=== PATIENT | female | born 1930 | race Caucasian/White ===

== ENCOUNTER 2017-11-17 16:39 | Inpatient (IN) ==
[2017-11-17] MEDS ORDERED: SODIUM CHLORIDE 0.9% 500 ML IV STA (16:50)
[2017-11-17] MEDS ORDERED: ONDANSETRON 4 MG/2 ML VIAL IV STA ×2 (16:51→18:42)
[2017-11-17] MEDS ORDERED: CEFEPIME 1,000 MG in SODIUM CHLORIDE 0.9% 100 ML IV STA (16:52)
[2017-11-17] MEDS ORDERED: ALBUTEROL/IPRATROPIUM 3 ML NEB RESP TX STA ×2 (16:53→18:41)
[2017-11-17] MEDS ORDERED: VANCOMYCIN INJ 1,000 MG in SODIUM CHLORIDE 0.9% 250 ML IV STA (16:59)
[2017-11-17 17:12] LABS: Basophils # 0.1 10*3/uL (0.0-0.2); Basophils % 0.7 % (0.0-0.8); Eosinophils # 0.2 10*3/uL (0.0-0.87); Eosinophils % 1.6 % (0.00-10.9); Hematocrit 43.3 VOL% (35.7-47.0); Hemoglobin 13.4 GM/DL (12.0-16.0); Immature Granulocytes % 0.6 %; Immature Granulocytes Absolute 0.07 #; Lymphocytes % 8.5 % (21.3-54.2); Mean Corpuscular HGB Conc 30.9 GM/DL (32-36); Mean Corpuscular Hemoglobin 26 PG (27-34); Mean Corpuscular Volume 83.8 FL (87-102); Mean Platelet Volume 11.1 FL (9.6-12.0); Monocytes # 0.9 10*3/uL (0.11-0.8); Monocytes % 7.5 % (1.7-12.7); Neutrophils # 9.8 10*3/uL (1.4-7.4); Neutrophils % 81.1 % (38.7-73.9); Platelet Count 461 T/CUMM (130-400); Red Blood Count 5.17 MC/CUMM (3.8-5.5); Red Cell Distribution Width 15.5 % (9.3-17.3); White Blood Count 12.1 T/CUMM (4-12)
[2017-11-17 17:23] LABS: INR 1.1; PT Patient Result 11.6 SECS; Partial Thromboplastin Time 33.4 SECS (0-40)
[2017-11-17 17:29] LABS: Lactic Acid 2.6 MMOL/L (0.4-2.0)
[2017-11-17] MEDS ORDERED: DOCUSATE SODIUM 100 MG CAPSULE PO PRN (18:49)
[2017-11-17] MEDS ORDERED: ALBUTEROL/IPRATROPIUM 3 ML NEB RESP TX PRN (19:02)
[2017-11-17] MEDS ORDERED: MECLIZINE 25 MG TABLET PO PRN (19:08)
[2017-11-17] MEDS ORDERED: ONDANSETRON ODT 4 MG TABLET PO PRN (19:08)
[2017-11-17] MEDS ORDERED: traMADol 50 MG TABLET PO PRN (19:08)
[2017-11-17 19:19] LABS: Alanine Aminotransferase 14 U/L (13-56); Albumin 2.8 G/DL (3.4-5.0); Alkaline Phosphatase 106 U/L (45-117); Aspartate Amino Transferase 21 U/L (0-37); Blood Urea Nitrogen 13 MG/DL (7-18); Calcium 9.5 MG/DL (8.5-10.1); Glucose 104 MG/DL (74-106); Osmolality,Calculated 274.7 MOS/KG (273-304); Sodium 138 MMOL/L (136-145); Total Protein 7.6 G/DL (6.4-8.3)
[2017-11-17 19:27] LABS: Apearance,Urine CLOUDY (Clear); Bilirubin,Urine Negative (Negative); Blood, Urine Moderate mg/dL (Negative); Glucose,Urine (UA) Negative (Negative); Ketones,Urine 20 mg/dL (Negative); Mucus,Urine Many /LPF (Occasional); Nitrite,Urine Negative (Negative); Protein,Urine Negative; RBC,Urine 17 /HPF (0-4); Urine Color Amber (Yellow); Urine Specific Gravity 1.024 (1.001-1.035); Urine Urobilinogen < 2.0 EU/DL (0.2-1.0)
[2017-11-17] MEDS: SODIUM CHLORIDE 0.9% 1,000 ML IV SCH (20:00)
[2017-11-17] MEDS ORDERED: DONEPEZIL 10 MG TABLET PO SCH (21:00)
[2017-11-17 21:34] LABS: Lactic Acid 2.1 MMOL/L (0.4-2.0)
[2017-11-17] MEDS: methylPREDNISolone SOD SUC 40 MG/1 ML VIAL IV SCH (21:40)
[2017-11-17] MEDS: FERROUS SULFATE 325 MG TABLET PO SCH (21:40)
[2017-11-17] MEDS: MELATONIN 3 MG TABLET PO SCH (21:40)
[2017-11-17] MEDS: BENZONATATE 100 MG CAPSULE PO SCH (21:40)
[2017-11-17] MEDS: MEROPENEM 1,000 MG in SYRINGE 1 EACH IV SCH (21:41)
[2017-11-17] MEDS: AZITHROMYCIN INJ 500 MG in SODIUM CHLORIDE 0.9% 250 ML IV SCH (23:47)
[2017-11-17] MEDS: ALBUTEROL 2.5 MG/3 ML NEB RESP TX SCH (23:51)
[2017-11-18 01:44] LABS: Calcium 8.7 MG/DL (8.5-10.1); Osmolality,Calculated 275.7 MOS/KG (273-304); Potassium 4.3 MMOL/L (3.5-5.1)
[2017-11-18] MEDS: ALBUTEROL 2.5 MG/3 ML NEB RESP TX SCH ×6 (03:47→23:15)
[2017-11-18 07:08] LABS: Basophils % 0.3 % (0.0-0.8); Eosinophils % 0.1 % (0.00-10.9); Hematocrit 37.3 VOL% (35.7-47.0); Immature Granulocytes % 0.5 %; Immature Granulocytes Absolute 0.05 #; Lymphocytes # 0.4 10*3/uL (1.4-4.0); Lymphocytes % 4.4 % (21.3-54.2); Mean Corpuscular HGB Conc 32.2 GM/DL (32-36); Mean Corpuscular Hemoglobin 27 PG (27-34); Mean Corpuscular Volume 83.3 FL (87-102); Mean Platelet Volume 11.4 FL (9.6-12.0); Monocytes # 0.2 10*3/uL (0.11-0.8); Monocytes % 1.6 % (1.7-12.7); Neutrophils # 8.7 10*3/uL (1.4-7.4); Neutrophils % 93.1 % (38.7-73.9); Platelet Count 383 T/CUMM (130-400); Red Blood Count 4.48 MC/CUMM (3.8-5.5); Red Cell Distribution Width 15.6 % (9.3-17.3); White Blood Count 9.4 T/CUMM (4-12)
[2017-11-18 07:40] LABS: Band Neutrophils 1 % (0-10); Hypochromasia Slight; Lymphocytes 2 % (20-55); Ovalocytes Slight; Platelet Estimate Adequate; Segmented Neutrophils 96 % (50-85); Total Cells Counted 100
[2017-11-18] MEDS: methylPREDNISolone SOD SUC 40 MG/1 ML VIAL IV SCH ×2 (08:45→21:40)
[2017-11-18] MEDS: MEROPENEM 1,000 MG in SYRINGE 1 EACH IV SCH ×2 (08:46→21:43)
[2017-11-18] MEDS: CALCIUM (CITRATE) 200 MG TABLET PO SCH (08:47)
[2017-11-18] MEDS: PANTOPRAZOLE 40 MG TABLET PO SCH (08:47)
[2017-11-18] MEDS: POTASSIUM CHLORIDE 20 MEQ TABLET PO SCH (08:47)
[2017-11-18] MEDS: FLUTICASONE 50 MCG NASAL SPRAY 16 GM BOTTLE BOTH NARES SCH (08:47)
[2017-11-18] MEDS: ASPIRIN EC 81 MG TABLET PO SCH (08:47)
[2017-11-18] MEDS: RIVAROXABAN 15 MG TABLET PO SCH (08:47)
[2017-11-18] MEDS: FERROUS SULFATE 325 MG TABLET PO SCH ×2 (08:47→21:39)
[2017-11-18] MEDS: BENZONATATE 100 MG CAPSULE PO SCH (08:48)
[2017-11-18] MEDS ORDERED: MEMANTINE HCL 14 MG PO SCH (09:00)
[2017-11-18] MEDS ORDERED: NON-FORMULARY MEDICATION (Mirabegron [Myrbetriq] 25 MG) PO SCH (09:00)
[2017-11-18] MEDS ORDERED: NON-FORMULARY MEDICATION (Saccharomyces Boulardii [Probiotic] 250 MG) PO SCH (09:00)
[2017-11-18] MEDS: CHOLESTYRAMINE 4 GM PACK PO SCH (11:42)
[2017-11-18] MEDS ORDERED: cloNIDine 0.1 MG/24 HR PATCH TRANSDERM SCH (12:00)
[2017-11-18 13:29] LABS: Free T4 (Free Thyroxine) 1.06 NG/DL (0.76-1.46); Thyroid Stimulating Hormone 2.46 uIU/ml (0.358-3.74)
[2017-11-18] MEDS ORDERED: GLUCAGON 1 MG VIAL IM PRN (13:34)
[2017-11-18] MEDS ORDERED: DEXTROSE 50% 25 GM/50 ML VIAL IV PRN (13:34)
[2017-11-18] MEDS: amLODIPine 5 MG TABLET PO SCH (15:53)
[2017-11-18] MEDS: SODIUM CHLORIDE 0.9% 1,000 ML IV SCH (15:54)
[2017-11-18] MEDS: guaiFENesin 200 MG/10 ML UDCUP PO SCH ×2 (15:54→21:39)
[2017-11-18] MEDS ORDERED: VANCOMYCIN INJ 1,000 MG in SODIUM CHLORIDE 0.9% 250 ML IV SCH (17:30)
[2017-11-18] MEDS: INSULIN REGULAR 100 UNIT/ML SUBCUT SCH ×2 (18:30→23:28)
[2017-11-18] MEDS: DONEPEZIL 5 MG TABLET PO SCH (21:39)
[2017-11-18] MEDS: MELATONIN 3 MG TABLET PO SCH (21:40)
[2017-11-18] MEDS: AZITHROMYCIN INJ 500 MG in SODIUM CHLORIDE 0.9% 250 ML IV SCH (22:41)
[2017-11-19] MEDS: ALBUTEROL 2.5 MG/3 ML NEB RESP TX SCH ×5 (03:30→20:12)
[2017-11-19] MEDS: guaiFENesin 200 MG/10 ML UDCUP PO SCH ×3 (04:30→21:51)
[2017-11-19 06:11] LABS: Basophils % 0.1 % (0.0-0.8); Hemoglobin 11.4 GM/DL (12.0-16.0); Immature Granulocytes % 0.8 %; Lymphocytes # 0.5 10*3/uL (1.4-4.0); Lymphocytes % 3.9 % (21.3-54.2); Mean Corpuscular HGB Conc 30.8 GM/DL (32-36); Mean Corpuscular Hemoglobin 26 PG (27-34); Mean Corpuscular Volume 85.1 FL (87-102); Monocytes # 0.3 10*3/uL (0.11-0.8); Monocytes % 2.2 % (1.7-12.7); Neutrophils # 11.1 10*3/uL (1.4-7.4); Platelet Count 400 T/CUMM (130-400); Red Blood Count 4.35 MC/CUMM (3.8-5.5); Red Cell Distribution Width 15.5 % (9.3-17.3); White Blood Count 11.9 T/CUMM (4-12)
[2017-11-19 06:23] LABS: PT Patient Result 10.7 SECS; Partial Thromboplastin Time 25.8 SECS (0-40)
[2017-11-19] MEDS: INSULIN REGULAR 100 UNIT/ML SUBCUT SCH ×3 (06:38→18:05)
[2017-11-19 06:41] LABS: Calcium 8.7 MG/DL (8.5-10.1); Osmolality,Calculated 291.7 MOS/KG (273-304); Potassium 4.4 MMOL/L (3.5-5.1); Prealbumin 7.8 MG/DL (20-40)
[2017-11-19 07:48] LABS: Band Neutrophils 2 % (0-10); Eosinophils 1 % (0-10); Hypochromasia 2+; Lymphocytes 2 % (20-55); Platelet Estimate Increased; Segmented Neutrophils 91 % (50-85); Total Cells Counted 100
[2017-11-19] MEDS ORDERED: diphenhydrAMINE 50 MG/1 ML VIAL IM ONE (08:30)
[2017-11-19] MEDS ORDERED: LIDOCAINE 2% 20 ML VIAL RESP TX ONE (09:00)
[2017-11-19] MEDS ORDERED: LIDOCAINE 1% 20 ML VIAL MISC INJ ONE (09:00)
[2017-11-19] MEDS: ASPIRIN EC 81 MG TABLET PO SCH (11:18)
[2017-11-19] MEDS: PANTOPRAZOLE 40 MG TABLET PO SCH (11:19)
[2017-11-19] MEDS: FERROUS SULFATE 325 MG TABLET PO SCH ×2 (11:19→21:51)
[2017-11-19] MEDS: FLUTICASONE 50 MCG NASAL SPRAY 16 GM BOTTLE BOTH NARES SCH (11:19)
[2017-11-19] MEDS: amLODIPine 5 MG TABLET PO SCH (11:19)
[2017-11-19] MEDS: MEMANTINE 10 MG TABLET PO SCH ×2 (11:19→21:51)
[2017-11-19] MEDS: LACTOBACILLUS ACIDOPHILUS/BULGARICUS CAPLET PO SCH (11:19)
[2017-11-19] MEDS: CALCIUM (CITRATE) 200 MG TABLET PO SCH (11:19)
[2017-11-19] MEDS: POTASSIUM CHLORIDE 20 MEQ TABLET PO SCH (11:19)
[2017-11-19] MEDS ORDERED: RACEPINEPHRINE 0.5 ML NEB RESP TX PRN (11:20)
[2017-11-19] MEDS: methylPREDNISolone SOD SUC 40 MG/1 ML VIAL IV SCH (12:17)
[2017-11-19] MEDS: MEROPENEM 1,000 MG in SYRINGE 1 EACH IV SCH ×2 (12:19→23:11)
[2017-11-19] MEDS: CHOLESTYRAMINE 4 GM PACK PO SCH (12:21)
[2017-11-19] MEDS: DEXAMETHASONE 4 MG/1 ML VIAL IV SCH ×2 (12:23→17:39)
[2017-11-19] MEDS: VANCOMYCIN INJ 1,000 MG in SODIUM CHLORIDE 0.9% 250 ML IV SCH ×2 (12:25→23:11)
[2017-11-19] MEDS: SCOPOLAMINE 1.5 MG PATCH TRANSDERM SCH (14:32)
[2017-11-19] MEDS: RACEPINEPHRINE 0.5 ML NEB RESP TX SCH ×3 (15:15→18:50)
[2017-11-19] MEDS ORDERED: ERGOCALCIFEROL 50,000 UNIT CAPSULE PO SCH (19:08)
[2017-11-19] MEDS: DONEPEZIL 5 MG TABLET PO SCH (21:51)
[2017-11-19] MEDS: MELATONIN 3 MG TABLET PO SCH (21:51)
[2017-11-19] MEDS: SODIUM CHLORIDE 0.9% 1,000 ML IV SCH (22:55)
[2017-11-20] MEDS: ALBUTEROL 2.5 MG/3 ML NEB RESP TX SCH ×7 (00:04→23:26)
[2017-11-20] MEDS: DEXAMETHASONE 4 MG/1 ML VIAL IV SCH ×4 (00:13→21:53)
[2017-11-20] MEDS: INSULIN REGULAR 100 UNIT/ML SUBCUT SCH ×4 (00:14→17:46)
[2017-11-20] MEDS: ONDANSETRON 4 MG/2 ML VIAL IV PRN ×2 (02:40→09:41)
[2017-11-20] MEDS: guaiFENesin 200 MG/10 ML UDCUP PO SCH ×3 (04:10→21:54)
[2017-11-20 06:59] LABS: Basophils % 0.2 % (0.0-0.8); Eosinophils # 0.1 10*3/uL (0.0-0.87); Eosinophils % 0.8 % (0.00-10.9); Hematocrit 35.8 VOL% (35.7-47.0); Hemoglobin 11.3 GM/DL (12.0-16.0); Immature Granulocytes % 0.6 %; Immature Granulocytes Absolute 0.05 #; Lymphocytes # 0.7 10*3/uL (1.4-4.0); Lymphocytes % 7.5 % (21.3-54.2); Mean Corpuscular HGB Conc 31.6 GM/DL (32-36); Mean Corpuscular Hemoglobin 26 PG (27-34); Mean Corpuscular Volume 83.1 FL (87-102); Mean Platelet Volume 11.5 FL (9.6-12.0); Monocytes # 0.5 10*3/uL (0.11-0.8); Monocytes % 5.1 % (1.7-12.7); Neutrophils # 7.7 10*3/uL (1.4-7.4); Neutrophils % 85.8 % (38.7-73.9); Platelet Count 384 T/CUMM (130-400); Red Blood Count 4.31 MC/CUMM (3.8-5.5); Red Cell Distribution Width 15.5 % (9.3-17.3)
[2017-11-20 07:16] LABS: Calcium 8.6 MG/DL (8.5-10.1); Osmolality,Calculated 286.8 MOS/KG (273-304); Potassium 3.8 MMOL/L (3.5-5.1)
[2017-11-20] MEDS: RACEPINEPHRINE 0.5 ML NEB RESP TX SCH ×4 (07:40→20:08)
[2017-11-20] MEDS ORDERED: LIDOCAINE 1% 5 ML VIAL ONE (08:45)
[2017-11-20] MEDS ORDERED: PROPOFOL 200 MG/20 ML VIAL IV ONE (08:45)
[2017-11-20] MEDS: VANCOMYCIN INJ 1,000 MG in SODIUM CHLORIDE 0.9% 250 ML IV SCH ×2 (09:00→21:57)
[2017-11-20 09:28] LABS: Cancer Antigen 19-9 5.5 U/ML (0-37); Carcinoembryonic Antigen 2.2 NG/ML (0.0-5.0)
[2017-11-20] MEDS: MEROPENEM 1,000 MG in SYRINGE 1 EACH IV SCH ×2 (15:05→21:53)
[2017-11-20] MEDS: DEXTROSE 5% NACL 0.45% 1,000 ML IV SCH (18:30)
[2017-11-20] MEDS: LACTOBACILLUS ACIDOPHILUS/BULGARICUS CAPLET PO SCH (19:38)
[2017-11-20] MEDS: FLUTICASONE 50 MCG NASAL SPRAY 16 GM BOTTLE BOTH NARES SCH (19:39)
[2017-11-20] MEDS: CALCIUM (CITRATE) 200 MG TABLET PO SCH (19:39)
[2017-11-20] MEDS: FERROUS SULFATE 325 MG TABLET PO SCH ×2 (19:39→21:54)
[2017-11-20] MEDS: PANTOPRAZOLE 40 MG TABLET PO SCH (19:40)
[2017-11-20] MEDS: MEMANTINE 10 MG TABLET PO SCH ×2 (19:40→21:55)
[2017-11-20] MEDS: POTASSIUM CHLORIDE 20 MEQ TABLET PO SCH (19:40)
[2017-11-20] MEDS: amLODIPine 5 MG TABLET PO SCH (19:40)
[2017-11-20] MEDS: CHOLESTYRAMINE 4 GM PACK PO SCH (19:41)
[2017-11-20] MEDS: LOSARTAN 25 MG TABLET PO SCH (20:32)
[2017-11-20] MEDS: DONEPEZIL 5 MG TABLET PO SCH (21:54)
[2017-11-20] MEDS: MELATONIN 3 MG TABLET PO SCH (21:54)
[2017-11-21] MEDS: ALBUTEROL 2.5 MG/3 ML NEB RESP TX SCH ×5 (02:07→21:15)
[2017-11-21] MEDS: INSULIN REGULAR 100 UNIT/ML SUBCUT SCH ×4 (02:29→19:49)
[2017-11-21] MEDS: DEXAMETHASONE 4 MG/1 ML VIAL IV SCH ×3 (04:11→21:37)
[2017-11-21] MEDS: guaiFENesin 200 MG/10 ML UDCUP PO SCH ×3 (04:11→21:38)
[2017-11-21] MEDS: RACEPINEPHRINE 0.5 ML NEB RESP TX SCH ×4 (07:25→21:22)
[2017-11-21] MEDS: MEROPENEM 1,000 MG in SYRINGE 1 EACH IV SCH ×2 (10:10→21:38)
[2017-11-21] MEDS: DORNASE ALFA 2.5 MG/2.5 ML VIAL RESP TX SCH ×2 (11:00→21:28)
[2017-11-21] MEDS: ONDANSETRON 4 MG/2 ML VIAL IV PRN (13:37)
[2017-11-21] MEDS: LOSARTAN 25 MG TABLET PO SCH (14:38)
[2017-11-21] MEDS: CALCIUM (CITRATE) 200 MG TABLET PO SCH (14:38)
[2017-11-21] MEDS: LACTOBACILLUS ACIDOPHILUS/BULGARICUS CAPLET PO SCH (14:38)
[2017-11-21] MEDS: RIVAROXABAN 15 MG TABLET PO SCH (14:38)
[2017-11-21] MEDS: FERROUS SULFATE 325 MG TABLET PO SCH ×2 (14:39→21:38)
[2017-11-21] MEDS: PANTOPRAZOLE 40 MG TABLET PO SCH (14:39)
[2017-11-21] MEDS: CHOLESTYRAMINE 4 GM PACK PO SCH (14:39)
[2017-11-21] MEDS: amLODIPine 5 MG TABLET PO SCH ×2 (14:39→21:43)
[2017-11-21] MEDS: POTASSIUM CHLORIDE 20 MEQ TABLET PO SCH (14:39)
[2017-11-21] MEDS: MEMANTINE 10 MG TABLET PO SCH ×2 (14:39→21:39)
[2017-11-21] MEDS: FLUTICASONE 50 MCG NASAL SPRAY 16 GM BOTTLE BOTH NARES SCH (14:40)
[2017-11-21] MEDS ORDERED: VANCOMYCIN INJ 1,000 MG in SODIUM CHLORIDE 0.9% 250 ML IV SCH (15:00)
[2017-11-21] MEDS: VANCOMYCIN INJ 1,000 MG in SODIUM CHLORIDE 0.9% 250 ML IV SCH (16:30)
[2017-11-21] MEDS ORDERED: FUROSEMIDE 40 MG/4 ML VIAL IV ONE (18:39)
[2017-11-21] MEDS: DONEPEZIL 5 MG TABLET PO SCH (21:38)
[2017-11-21] MEDS: MELATONIN 3 MG TABLET PO SCH (21:39)
[2017-11-21] MEDS ORDERED: diphenhydrAMINE 50 MG/1 ML VIAL IV ONE (22:00)
[2017-11-22] MEDS: ALBUTEROL 2.5 MG/3 ML NEB RESP TX SCH ×7 (00:22→23:37)
[2017-11-22] MEDS: DEXAMETHASONE 4 MG/1 ML VIAL IV SCH ×4 (01:33→20:44)
[2017-11-22] MEDS: VANCOMYCIN INJ 1,000 MG in SODIUM CHLORIDE 0.9% 250 ML IV SCH ×3 (03:01→15:20)
[2017-11-22] MEDS: DORNASE ALFA 2.5 MG/2.5 ML VIAL RESP TX SCH ×2 (07:29→19:48)
[2017-11-22] MEDS: RACEPINEPHRINE 0.5 ML NEB RESP TX SCH ×4 (07:30→19:48)
[2017-11-22] MEDS: INSULIN REGULAR 100 UNIT/ML SUBCUT SCH ×5 (07:50→23:51)
[2017-11-22] MEDS: guaiFENesin 200 MG/10 ML UDCUP PO SCH ×3 (07:50→20:43)
[2017-11-22] MEDS ORDERED: LIDOCAINE 2% 5 ML VIAL ONE (09:00)
[2017-11-22] MEDS ORDERED: PROPOFOL 200 MG/20 ML VIAL IV ONE (09:00)
[2017-11-22] MEDS ORDERED: ETOMIDATE 20 MG/10 ML VIAL IV ONE (09:00)
[2017-11-22] MEDS ORDERED: ONDANSETRON 4 MG/2 ML VIAL ONE (09:43)
[2017-11-22] MEDS: ONDANSETRON 4 MG/2 ML VIAL IV PRN ×2 (09:45→13:07)
[2017-11-22] MEDS: FLUTICASONE 50 MCG NASAL SPRAY 16 GM BOTTLE BOTH NARES SCH (10:10)
[2017-11-22] MEDS: LACTOBACILLUS ACIDOPHILUS/BULGARICUS CAPLET PO SCH (10:10)
[2017-11-22] MEDS: FERROUS SULFATE 325 MG TABLET PO SCH (10:11)
[2017-11-22] MEDS: amLODIPine 5 MG TABLET PO SCH ×2 (10:11→20:43)
[2017-11-22] MEDS: CALCIUM (CITRATE) 200 MG TABLET PO SCH (10:11)
[2017-11-22] MEDS: LANSOPRAZOLE ODT 30 MG TABLET PEG SCH (10:11)
[2017-11-22] MEDS: MEMANTINE 10 MG TABLET PO SCH ×2 (10:11→20:43)
[2017-11-22] MEDS: SCOPOLAMINE 1.5 MG PATCH TRANSDERM SCH (10:12)
[2017-11-22] MEDS: LOSARTAN 25 MG TABLET PO SCH (10:12)
[2017-11-22] MEDS: POTASSIUM CHLORIDE 20 MEQ TABLET PO SCH (10:12)
[2017-11-22] MEDS: MEROPENEM 1,000 MG in SYRINGE 1 EACH IV SCH (10:28)
[2017-11-22] MEDS: CHOLESTYRAMINE 4 GM PACK PO SCH (10:36)
[2017-11-22] MEDS: DEXTROSE 5% NACL 0.45% 1,000 ML IV SCH ×2 (10:40→19:03)
[2017-11-22 11:17] LABS: Basophils % 0.1 % (0.0-0.8); Hematocrit 38.2 VOL% (35.7-47.0); Hemoglobin 12.4 GM/DL (12.0-16.0); Immature Granulocytes % 0.7 %; Immature Granulocytes Absolute 0.11 #; Lymphocytes # 1.5 10*3/uL (1.4-4.0); Mean Corpuscular HGB Conc 32.5 GM/DL (32-36); Mean Corpuscular Hemoglobin 26 PG (27-34); Mean Corpuscular Volume 80.1 FL (87-102); Mean Platelet Volume 11.3 FL (9.6-12.0); Monocytes % 6.2 % (1.7-12.7); Neutrophils # 13.9 10*3/uL (1.4-7.4); Platelet Count 614 T/CUMM (130-400); Red Blood Count 4.77 MC/CUMM (3.8-5.5); Red Cell Distribution Width 15.2 % (9.3-17.3); White Blood Count 16.5 T/CUMM (4-12)
[2017-11-22 11:55] LABS: Calcium 8.5 MG/DL (8.5-10.1); Osmolality,Calculated 281.4 MOS/KG (273-304); Potassium 3.6 MMOL/L (3.5-5.1)
[2017-11-22] MEDS: MELATONIN 3 MG TABLET PO SCH (20:44)
[2017-11-22] MEDS: DONEPEZIL 5 MG TABLET PO SCH (20:44)
[2017-11-23] MEDS: VANCOMYCIN INJ 1,000 MG in SODIUM CHLORIDE 0.9% 250 ML IV SCH ×2 (02:06→17:40)
[2017-11-23] MEDS: DEXAMETHASONE 4 MG/1 ML VIAL IV SCH ×4 (02:06→20:31)
[2017-11-23] MEDS: ALBUTEROL 2.5 MG/3 ML NEB RESP TX SCH ×5 (02:11→20:26)
[2017-11-23] MEDS: guaiFENesin 200 MG/10 ML UDCUP PO SCH ×3 (03:32→20:19)
[2017-11-23] MEDS: INSULIN REGULAR 100 UNIT/ML SUBCUT SCH ×4 (06:41→23:24)
[2017-11-23 06:49] LABS: Basophils % 0.1 % (0.0-0.8); Eosinophils % 0.2 % (0.00-10.9); Hematocrit 38.3 VOL% (35.7-47.0); Hemoglobin 11.8 GM/DL (12.0-16.0); Immature Granulocytes % 0.7 %; Immature Granulocytes Absolute 0.11 #; Lymphocytes # 1.3 10*3/uL (1.4-4.0); Lymphocytes % 8.2 % (21.3-54.2); Mean Corpuscular HGB Conc 30.8 GM/DL (32-36); Mean Corpuscular Hemoglobin 26 PG (27-34); Mean Corpuscular Volume 83.8 FL (87-102); Mean Platelet Volume 11.8 FL (9.6-12.0); Monocytes # 0.8 10*3/uL (0.11-0.8); Monocytes % 5.4 % (1.7-12.7); Neutrophils # 13.1 10*3/uL (1.4-7.4); Neutrophils % 85.4 % (38.7-73.9); Platelet Count 469 T/CUMM (130-400); Red Blood Count 4.57 MC/CUMM (3.8-5.5); Red Cell Distribution Width 15.4 % (9.3-17.3); White Blood Count 15.3 T/CUMM (4-12)
[2017-11-23 07:21] LABS: Calcium 8.1 MG/DL (8.5-10.1); Osmolality,Calculated 279.5 MOS/KG (273-304); Potassium 3.3 MMOL/L (3.5-5.1)
[2017-11-23] MEDS: RACEPINEPHRINE 0.5 ML NEB RESP TX SCH ×4 (07:55→20:26)
[2017-11-23] MEDS: DORNASE ALFA 2.5 MG/2.5 ML VIAL RESP TX SCH ×2 (07:55→20:26)
[2017-11-23] MEDS ORDERED: POTASSIUM CHLORIDE 20 MEQ/15 ML UDCUP PER TUBE PRN (08:49)
[2017-11-23] MEDS: LACTOBACILLUS ACIDOPHILUS/BULGARICUS CAPLET PO SCH (10:14)
[2017-11-23] MEDS: LANSOPRAZOLE ODT 30 MG TABLET PEG SCH (10:14)
[2017-11-23] MEDS: MEMANTINE 10 MG TABLET PO SCH ×2 (10:14→20:31)
[2017-11-23] MEDS: LOSARTAN 25 MG TABLET PO SCH (10:14)
[2017-11-23] MEDS: amLODIPine 5 MG TABLET PO SCH ×3 (10:14→20:31)
[2017-11-23] MEDS: POTASSIUM CHLORIDE 20 MEQ TABLET PO SCH (10:18)
[2017-11-23] MEDS: FLUTICASONE 50 MCG NASAL SPRAY 16 GM BOTTLE BOTH NARES SCH (10:21)
[2017-11-23] MEDS: CHOLESTYRAMINE 4 GM PACK PO SCH (14:55)
[2017-11-23] MEDS: DEXTROSE 5% NACL 0.45% 1,000 ML IV SCH (17:40)
[2017-11-23] MEDS: MELATONIN 3 MG TABLET PO SCH (20:20)
[2017-11-23] MEDS: DONEPEZIL 5 MG TABLET PO SCH (20:20)
[2017-11-24] MEDS: ALBUTEROL 2.5 MG/3 ML NEB RESP TX SCH ×4 (00:19→11:27)
[2017-11-24] MEDS: DEXAMETHASONE 4 MG/1 ML VIAL IV SCH ×4 (02:30→20:06)
[2017-11-24] MEDS: VANCOMYCIN INJ 1,000 MG in SODIUM CHLORIDE 0.9% 250 ML IV SCH ×2 (02:31→14:28)
[2017-11-24] MEDS: guaiFENesin 200 MG/10 ML UDCUP PO SCH ×3 (04:27→20:06)
[2017-11-24] MEDS: INSULIN REGULAR 100 UNIT/ML SUBCUT SCH ×4 (06:04→23:22)
[2017-11-24] MEDS: DORNASE ALFA 2.5 MG/2.5 ML VIAL RESP TX SCH ×2 (07:55→20:26)
[2017-11-24] MEDS: RACEPINEPHRINE 0.5 ML NEB RESP TX SCH ×4 (07:55→20:26)
[2017-11-24] MEDS: LACTOBACILLUS ACIDOPHILUS/BULGARICUS CAPLET PO SCH ×2 (09:46→10:34)
[2017-11-24] MEDS: FLUTICASONE 50 MCG NASAL SPRAY 16 GM BOTTLE BOTH NARES SCH (09:47)
[2017-11-24] MEDS: MEMANTINE 10 MG TABLET PO SCH ×3 (09:47→20:05)
[2017-11-24] MEDS: amLODIPine 5 MG TABLET PO SCH ×3 (09:47→20:02)
[2017-11-24] MEDS: LOSARTAN 25 MG TABLET PO SCH ×2 (09:47→10:34)
[2017-11-24] MEDS: POTASSIUM CHLORIDE 20 MEQ TABLET PO SCH ×2 (09:47→10:34)
[2017-11-24] MEDS: LANSOPRAZOLE ODT 30 MG TABLET PEG SCH ×2 (09:47→10:35)
[2017-11-24] MEDS: ONDANSETRON 4 MG/2 ML VIAL IV PRN ×2 (09:50→19:10)
[2017-11-24] MEDS: CHOLESTYRAMINE 4 GM PACK PO SCH (10:35)
[2017-11-24] MEDS ORDERED: DEXAMETHASONE 4 MG/1 ML VIAL IV SCH (17:30)
[2017-11-24] MEDS: DEXTROSE 5% NACL 0.45% 1,000 ML IV SCH (17:38)
[2017-11-24] MEDS: MELATONIN 3 MG TABLET PO SCH (20:02)
[2017-11-24] MEDS: DONEPEZIL 5 MG TABLET PO SCH (20:02)
[2017-11-25] MEDS: DEXAMETHASONE 4 MG/1 ML VIAL IV SCH ×2 (00:59→08:45)
[2017-11-25] MEDS: VANCOMYCIN INJ 1,000 MG in SODIUM CHLORIDE 0.9% 250 ML IV SCH (02:34)
[2017-11-25] MEDS: guaiFENesin 200 MG/10 ML UDCUP PO SCH (04:04)
[2017-11-25] MEDS: INSULIN REGULAR 100 UNIT/ML SUBCUT SCH (05:09)
[2017-11-25] MEDS: DORNASE ALFA 2.5 MG/2.5 ML VIAL RESP TX SCH (07:42)
[2017-11-25] MEDS: RACEPINEPHRINE 0.5 ML NEB RESP TX SCH ×3 (07:42→14:15)
[2017-11-25 07:43] VITALS: BP 130/71
[2017-11-25] MEDS: ONDANSETRON 4 MG/2 ML VIAL IV PRN (08:42)
[2017-11-25 10:10] LABS: Calcium 8.4 MG/DL (8.5-10.1); Osmolality,Calculated 276.8 MOS/KG (273-304); Potassium 3.9 MMOL/L (3.5-5.1)
== END 2017-11-25 16:05 | disposition hospice, inpatient (51) | DRG 853 ==
LOC: EDBD → EDUNIT# → N.ED 16:39 → N.EDINP 18:49 → SUATTDRO 18:49 → N.5E 19:40
PROVIDERS: ADMIT Internal Medicine; ATTEND Internal Medicine
PROC: EGDWPEG (ICD-10-PCS; 2017-11-22 07:35)